=== PATIENT | male | born 1950 | race Caucasian/White ===

== ENCOUNTER 2024-04-06 09:21 | Emergency (ER) | payer MEDICARE, OTHER, SELFPAY ==
[2024-04-06] VITALS (27 sets, daily range): BP systolic 116–140; BP diastolic 70–96; PULSE 65–80; TEMP 36.8; O2SAT 93–99
--- NOTE | 2024-04-06 09:43 | CT_ITS ---
The [address] [address] Patient Name: LURDES SULLIVAN MRN: [id number] date: 1950 Sex: M Assigned Patient Location: ED.MAIN Current Patient Location: Accession/Order Number: [id number] Exam Date: 04/06/2024 11:39 Report Date: 04/06/2024 12:25 At the request of: CHRISTIANO METCALF Procedure: CT cervical spine wo con EXAM: CT head/brain wo con, CT cervical spine wo con HISTORY: Dizziness, fall, head lac COMPARISON: None. TECHNIQUE: Axial noncontrast CT imaging of the head and cervical spine was performed with coronal and sagittal reformats. FINDINGS: CT head Calvarium/skull base: Trace left frontal scalp contusion. No evidence of acute fracture or destructive lesion. Mastoids and middle ears demonstrate no substantial mucosal disease. Paranasal sinuses: No air fluid levels. Brain: No acute intracranial hemorrhage. No acute large vascular territory infarct. Age indeterminate subtle subcentimeter hypodensity involving the left frontal vu radiata white matter. No mass lesion or mass effect. No hydrocephalus. CT cervical spine Alignment: No substantial subluxation. Vertebrae: Vertebral body heights are maintained. No fracture. Diffuse osteopenia. Craniocervical junction: No focal abnormality. Degenerative changes: Moderate degenerative change of the cervical spine with multilevel disc height loss, osteophytic spurring, posterior disc osteophyte complexes and multilevel moderate and/or advanced uncovertebral and facet arthropathy. There is at least moderate canal stenosis at C5-C6 and multilevel moderate foraminal stenosis. Advanced bilateral foraminal stenosis is also noted at C5-C6 secondary to advanced uncovertebral arthropathy at this level. Visualized portion of the thoracic spine: No high grade canal stenosis. Additional Comments: Left apical 10 mm pulmonary nodule superimposed on left greater than right apical scarring.. CT/CT cervical spine wo con IMPRESSION: 1. No acute large vascular territory infarct or acute intracranial hemorrhage. 2. Subcentimeter hypodensity involving the left frontal vu radiata white matter which is age-indeterminate given lack available comparison. If there is clinical concern for acute ischemia recommend MR brain for further evaluation. 3. Trace left frontal scalp contusion. 4. No acute fracture or traumatic malalignment of the cervical spine. 5. Moderate degenerative change of the cervical spine. 6. 10 mm left apical pulmonary nodule. If not previously evaluated elsewhere consider dedicated CT chest for further characterization. Electronically authenticated by: GENNY PINA Date: 04/06/2024 12:25
--- NOTE | 2024-04-06 09:43 | CT_ITS ---
The [address] [address] Patient Name: LURDES SULLIVAN MRN: [id number] date: 1950 Sex: M Assigned Patient Location: ED.MAIN Current Patient Location: Accession/Order Number: [id number] Exam Date: 04/06/2024 11:39 Report Date: 04/06/2024 12:25 At the request of: CHRISTIANO METCALF Procedure: CT head/brain wo con EXAM: CT head/brain wo con, CT cervical spine wo con HISTORY: Dizziness, fall, head lac COMPARISON: None. TECHNIQUE: Axial noncontrast CT imaging of the head and cervical spine was performed with coronal and sagittal reformats. FINDINGS: CT head Calvarium/skull base: Trace left frontal scalp contusion. No evidence of acute fracture or destructive lesion. Mastoids and middle ears demonstrate no substantial mucosal disease. Paranasal sinuses: No air fluid levels. Brain: No acute intracranial hemorrhage. No acute large vascular territory infarct. Age indeterminate subtle subcentimeter hypodensity involving the left frontal vu radiata white matter. No mass lesion or mass effect. No hydrocephalus. CT cervical spine Alignment: No substantial subluxation. Vertebrae: Vertebral body heights are maintained. No fracture. Diffuse osteopenia. Craniocervical junction: No focal abnormality. Degenerative changes: Moderate degenerative change of the cervical spine with multilevel disc height loss, osteophytic spurring, posterior disc osteophyte complexes and multilevel moderate and/or advanced uncovertebral and facet arthropathy. There is at least moderate canal stenosis at C5-C6 and multilevel moderate foraminal stenosis. Advanced bilateral foraminal stenosis is also noted at C5-C6 secondary to advanced uncovertebral arthropathy at this level. Visualized portion of the thoracic spine: No high grade canal stenosis. Additional Comments: Left apical 10 mm pulmonary nodule superimposed on left greater than right apical scarring.. CT/CT head/brain wo con IMPRESSION: 1. No acute large vascular territory infarct or acute intracranial hemorrhage. 2. Subcentimeter hypodensity involving the left frontal vu radiata white matter which is age-indeterminate given lack available comparison. If there is clinical concern for acute ischemia recommend MR brain for further evaluation. 3. Trace left frontal scalp contusion. 4. No acute fracture or traumatic malalignment of the cervical spine. 5. Moderate degenerative change of the cervical spine. 6. 10 mm left apical pulmonary nodule. If not previously evaluated elsewhere consider dedicated CT chest for further characterization. Electronically authenticated by: GENNY PINA Date: 04/06/2024 12:25
--- NOTE | 2024-04-06 09:43 | ECG_ITS ---
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
--- NOTE | 2024-04-06 09:43 | XR_ITS ---
The [address] [address] Patient Name: LURDES SULLIVAN MRN: [id number] date: 1950 Sex: M Assigned Patient Location: ER Current Patient Location: ER Accession/Order Number: [id number] Exam Date: 04/06/2024 10:20 Report Date: 04/06/2024 11:28 At the request of: CHRISTIANO METCALF Procedure: XR chest 1V EXAM: XR chest 1V HISTORY: syncope COMPARISON: None. TECHNIQUE: Chest X-ray AP, 1 view FINDINGS: Support devices: Median sternotomy wires are in place. Lungs/pleura: No consolidation, effusion, or pneumothorax. Heart and mediastinum: Normal contours. Bones: No acute abnormality identified. XR/XR chest 1V Impression: No radiographic evidence of acute cardiopulmonary process. Electronically authenticated by: GLORIA KHAN Date: 04/06/2024 11:28
--- NOTE | 2024-04-06 09:43 | CT_ITS ---
[address] [address] Patient Name: LURDES SULLIVAN MRN: [id number] date: 1950 Sex: M Assigned Patient Location: ED.MAIN Current Patient Location: Accession/Order Number: [id number] Exam Date: 04/06/2024 11:39 Report Date: 04/06/2024 13:15 At the request of: CHRISTIANO METCALF Procedure: CT abdomen pelvis w con EXAM: CT abdomen pelvis w con HISTORY: weight loss abd pain COMPARISON: None. TECHNIQUE: Axial CT imaging was performed through the abdomen and pelvis with intravenous contrast. Multiplanar reformats were performed. Dose reduction techniques were achieved by using automated exposure control and/or adjustment of mA and/or kV according to patient size and/or use of iterative reconstruction technique. FINDINGS: Lung bases: Lung bases are clear. No pleural effusion. GI upper: Unremarkable. Liver: Normal size and contour. Gallbladder: No significant abnormality. No cholelithiasis. Biliary system: No intra or extrahepatic biliary ductal dilatation. Spleen: Normal size. Pancreas: Unremarkable. Adrenal glands: Normal adrenal glands. Kidneys/ureters: Normal contours. No hydronephrosis. There is a 0.2 cm right renal stone. Vessels: No aneurysm. Lymph Nodes: No lymphadenopathy. Small bowel: No wall thickening or dilatation. Colon: No wall thickening or dilatation. Moderate volume stool burden. Appendix: No findings of appendicitis. Peritoneal cavity: No free fluid or pneumoperitoneum. Lower : Prostatomegaly. The urinary bladder is unremarkable. Bones: No acute bony abnormality. Degenerative changes of lumbar spine. Soft tissues: No acute finding. Additional findings: None. CT/CT abdomen pelvis w con IMPRESSION: 0.2 cm nonobstructing right renal stone. Constipation. Electronically authenticated by: GLORIA KHAN Date: 04/06/2024 13:15
--- NOTE | 2024-04-06 09:53 | ED_ITS ---
HPI HPI - General Adult General Chief complaint: Head Injury Stated complaint: fall Time Seen by Provider: 04/06/24 09:24 Source: patient Mode of arrival: walk-in History of Present Illness HPI narrative: Patient presents to ED after a fall last night. He states he got up out of bed and seemed like he was very dizzy and then next thing he knows he woke up on the ground. He suffered a 3 cm laceration to the left side of the forehead. He denies any neck pain or any other injury. He lives at home with his brother who helped him back up. He came in today for further evaluation. When talking to him further he does report a 25 pound weight loss recently. He did lose his about a year and a half ago and has been dealing with depression however he said the weight loss was more recent than that. No suicidal ideation or self- harm. He is alert and oriented at this time. He does report some nausea daily with vague abdominal discomfort. He also reports that he has been dealing with pretty severe headaches almost every day for about the past year. He said the headaches are in the back of the head and radiate up in the scalp to the top of the head. No neurological deficits. Related Data Home Medications ?Medication ?Instructions ?Recorded ?Confirmed duloxetine 30 mg capsule,delayed 30 mg PO DAILY 04/06/24 04/06/24 release (Cymbalta) omeprazole 40 mg capsule,delayed 40 mg PO DAILY 04/06/24 04/06/24 release rosuvastatin 5 mg sprinkle capsule 5 mg PO DAILY 04/06/24 04/06/24 (Ezallor Sprinkle) Allergies Allergy/AdvReac Type Severity Reaction Status Date / Time Penicillins Allergy Severe Verified 04/06/24 09:29 Opioid HPI Opioid Management Most Recent Opioid Data: Last ED Pain Assessment 04/06/24 10:13 Review of Systems ROS Status of ROS 10 or more systems reviewed and unremark able except as noted in history and below Exam Narrative Exam Narrative: Time Seen: [] Vital Signs: [Per nurse's notes.] General: [Alert] Skin: [Warm, dry, no rash.] Head: [3 cm laceration vertically to the left side of the forehead Neck: [Supple, trachea midline.] Eye: [Pupils are equal, round and reactive to light, extraocular movements are intact, normal conjunctiva.] Ears, nose, mouth and throat: oral mucosa moist. Cardiovascular: [Regular rate and rhythm, no murmur.] Respiratory: [Lungs are clear to auscultation, respirations are non-labored, breath sounds are equal.] Chest wall: [No tenderness, no deformity.] Gastrointestinal: [Soft, nontender, non distended, normal bowel sounds.] MSK: 5 out of 5 muscle strength x 4 extremities no calf pain or edema Lymphatics: [No lymphadenopathy.] Psychiatric: [Cooperative, appropriate mood & affect.] Neurological: [Alert and oriented to person, place, time, and situation, no focal neurological deficit observed.] Constitutional Vital Signs, click to edit/add: Last Vital Signs Temp 98.3 F 04/06/24 09:26 Pulse 69 04/06/24 13:30 Resp 16 04/06/24 13:30 BP 126/74 04/06/24 13:30 Pulse Ox 98 04/06/24 13:30 O2 Del Method Room Air 04/06/24 09:26 Course Vital Signs Vital signs: Vital Signs Temperature 98.3 F 04/06/24 09:26 Pulse Rate 73 04/06/24 09:26 Respiratory Rate 18 04/06/24 09:26 Blood Pressure 140/96 H 04/06/24 09:26 Pulse Oximetry 98 04/06/24 09:26 Oxygen Delivery Method Room Air 04/06/24 09:26 Temperature 98.3 F 04/06/24 09:26 Pulse Rate 69 04/06/24 13:30 Respiratory Rate 16 04/06/24 13:30 Blood Pressure 126/74 04/06/24 13:30 Pulse Oximetry 98 04/06/24 13:30 Oxygen Delivery Method Room Air 04/06/24 09:26 Medical Decision Making MDM Narrative Medical decision making narrative: Patient's laceration was repaired. CT brain is negative. CT cervical spine is negative for acute. Chest x-ray shows a nodule that will need followed outpatient. CT abdomen pelvis shows constipation but no other acute findings. At this time I am unable to explain his weight loss it could be the possible depression from losing his but also he will need followed up with on the pulmonary nodule. He does not have a primary doctor yet since he just moved up here. He is working to get in with Dr. Hang adenomas. I have printed his labs and image results so that whoever he ends up with can review that. Patient instructed to return to ED if worsening symptoms or concerns. He will need stitches out in about 7 days so please return here or go to the family doctor if he gets 1 by then. Patient and family are comfortable care plan for home Differential Diagnosis Differential Diagnosis: Intracranial hemorrhage, cervical spine injury, cancer, laceration, fall Medical Records Medical records reviewed: Yes I reviewed the patient's medical records Lab Data Lab results reviewed: Yes I reviewed the patient's lab results Labs: Lab Results 04/06/24 04/06/24 Range/Units 09:40 12:09 WBC 4.9 (4.0-11.0) 10^3/uL RBC 4.50 L (4.70-6.10) 10^6/uL Hgb 14.5 (14.0-18.0) g/dL Hct 41.9 L (42.0-54.0) % MCV 93.1 (80.0-94.0) fL MCH 32.2 (25.9-34.0) pg MCHC 34.6 (29.9-35.2) g/dL RDW 11.9 (11.0-15.0) % Plt Count 167 (150-450) 10^3/uL MPV 9.8 (9.5-13.5) fL Neut % (Auto) 68.2 (43.0-75.0) % Lymph % (Auto) 23.1 (20.5-60.0) % [place] % (Auto) 6.9 (1.7-12.0) % Eos % (Auto) 1.2 (0.9-7.0) % Baso % (Auto) 0.6 (0.2-2.0) % Neut # (Auto) 3.4 (1.4-6.5) 10^3/uL Lymph # (Auto) 1.1 L (1.2-3.8) 10^3/uL [place] # (Auto) 0.3 (0.3-0.8) 10^3/uL Eos # (Auto) 0.1 (0.0-0.7) 10^3/uL Baso # (Auto) 0.0 (0.0-0.1) 10^3/uL Abs Immat Gran (auto) 0.00 (0.00-0.03) 10^3/uL Imm/Tot Granulo (auto) 0.0 (0.0-0.5) % Sodium 142 (136-145) mmol/L Potassium 3.8 (3.5-5.1) mmol/L Chloride 104 (98-107) mmol/L Carbon Dioxide 28.5 (21.0-32.0) mmol/L Anion Gap 13.3 BUN 21.0 H (7.0-18.0) mg/dL Creatinine 0.94 (0.70-1.30) mg/dL Est GFR ( Amer) >60 (>=60) Est GFR (Non-Af Amer) >60 (>=60) BUN/Creatinine Ratio 22.3 Glucose 115 H (74-106) mg/dL Calcium 9.2 (8.5-10.1) mg/dL Total Bilirubin 1.7 H (0.2-1.0) mg/dL AST 17 (15-37) U/L ALT 18 (16-63) U/L Alkaline Phosphatase 71 (46-116) U/L Troponin I High Sens 5.3 (4.0-76.1) pg/mL Total Protein 6.9 (6.4-8.2) g/dL Albumin 3.6 (3.4-5.0) g/dL Globulin 3.3 g/dL Albumin/Globulin Ratio 1.1 Urine Color Lt. yellow (YELLOW) Urine Clarity Clear (CLEAR) Urine pH 6.5 (5.0-9.0) Ur Specific [place] 1.010 (1.005-1.025) Urine Protein Negative (NEG/TRACE) mg/dL Urine Glucose (UA) Negative (NEGATIVE) mg/dL Urine Ketones Negative (NEGATIVE) mg/dL Urine Occult Blood Negative (NEGATIVE) Urine Nitrite Negative (NEGATIVE) Urine Bilirubin Negative (NEGATIVE) Urine Urobilinogen 0.2 (0.2-1.0) EU/dL Ur Leukocyte Esterase Negative (NEGATIVE) Imaging Data Chest x-ray: Radiologist's impression: ITS Impressions Abdomen/Pelvis CT 04/06/24 09:43 IMPRESSION: 0.2 cm nonobstructing right renal stone. Constipation. Electronically authenticated by: GLORIA KHAN Date: 04/06/2024 13:[address] 04/06/24 09:43 IMPRESSION: 1. No acute large vascular territory infarct or acute intracranial hemorrhage. 2. Subcentimeter hypodensity involving the left frontal vu radiata white matter which is age-indeterminate given lack available comparison. If there is clinical concern for acute ischemia recommend MR brain for further evaluation. 3. Trace left frontal scalp contusion. 4. No acute fracture or traumatic malalignment of the cervical spine. 5. Moderate degenerative change of the cervical spine. 6. 10 mm left apical pulmonary nodule. If not previously evaluated elsewhere consider dedicated CT chest for further characterization. Electronically authenticated by: GENNY PINA Date: 04/06/2024 12:25 Chest X-Ray 04/06/24 09:43 Impression: No radiographic evidence of acute cardiopulmonary process. Electronically authenticated by: GLORIA KHAN Date: 04/06/2024 11:[address] 04/06/24 09:43 IMPRESSION: 1. No acute large vascular territory infarct or acute intracranial hemorrhage. 2. Subcentimeter hypodensity involving the left frontal vu radiata white matter which is age-indeterminate given lack available comparison. If there is clinical concern for acute ischemia recommend MR brain for further evaluation. 3. Trace left frontal scalp contusion. 4. No acute fracture or traumatic malalignment of the cervical spine. 5. Moderate degenerative change of the cervical spine. 6. 10 mm left apical pulmonary nodule. If not previously evaluated elsewhere consider dedicated CT chest for further characterization. Electronically authenticated by: GENNY PINA Date: 04/06/2024 12:25 ECG Data Attestation: I personally reviewed and interpreted this ECG as follows: Interpretation: EKG INTERPRETATION Time: []932 Rate: []72 Rhythm: _ []Normal sinus rhythm ST segments: _ [] T waves: _ [] Ectopy: _ [] P wave/PA interval: _ [] QRS interval: _ [] QT interval: _ [] Comparison: _ [] Comparison EKG date: [] Performed by: [self]Occasional PVC no acute ST elevation or depression Discharge Plan Discharge Stand Alone Forms: Portal Instructions Chief Complaint: Head Injury Clinical Impression: Closed head injury, Fall, Laceration Patient Disposition: Home, Self-Care Time of Disposition Decision: 13:41 Condition: Good Mode of Transportation: Private Vehicle Prescriptions / Home Meds: No Action Ezallor Sprinkle 5 mg capsule, sprinkle 5 mg PO DAILY duloxetine [Cymbalta] 30 mg capsule,delayed release(DR/EC) 30 mg PO DAILY omeprazole 40 mg capsule,delayed release(DR/EC) 40 mg PO DAILY Print Language: Emirati Instructions: Head Injury (ED), Fall Prevention (ED) Referrals: Physician,Non-Staff, MD [Primary Care Provider] - 1 week Procedures ED Laceration Laceration Laceration 1: Additional comments: Time: [] Patient/procedure site confirmed correct. Time out taken. Consent from: _ []Patient Consent form: _ [] Location: []Forehead, left side Shape: _ []Linear but jagged vertical Depth: _ [] Details: _ [] Vascular exam: _ []Normal Sensory exam: _ []Normal Motor exam: _ []Normal Anesthesia amount (mls): []8 mL 1% lidocaine no epi Anesthesia type: _ [] Anesthesia location: _ []Local Preparation: sterile field _ [] Irrigation type: _ [] Irrigation amount (mls): [] Irrigation: _ [] Debridement: _ [] Closure type: _ []Simple interrupted Complexity: _ [] Closure technique: _ [] Suture type: _ []6-0 ethilon Suture total: [] 7 Top layer: [] Middle layer: [] Deep layer: [] Complications: [None] Patient tolerated: _ []well Post procedure exam: [Circulation, motor, sensory intact and bleeding controlled] Performed by: [self] Total time: []15 nub
[2024-04-06 10:17] LABS: Basophils Percent Auto 0.6 % (0.2-2.0); Eosinophils Absolute Auto 0.1 10^3/uL (0.0-0.7); Eosinophils Percent Auto 1.2 % (0.9-7.0); Hematocrit 41.9 % (42.0-54.0); Hemoglobin 14.5 g/dL (14.0-18.0); Lymphocytes Absolute Auto 1.1 10^3/uL (1.2-3.8); Lymphocytes Percent Auto 23.1 % (20.5-60.0); Mean Corpuscular HGB Conc 34.6 g/dL (29.9-35.2); Mean Corpuscular Hemoglobin 32.2 pg (25.9-34.0); Mean Corpuscular Volume 93.1 fL (80.0-94.0); Mean Platelet Volume 9.8 fL (9.5-13.5); Monocytes Absolute Auto 0.3 10^3/uL (0.3-0.8); Monocytes Percent Auto 6.9 % (1.7-12.0); Neutrophils Absolute Auto 3.4 10^3/uL (1.4-6.5); Neutrophils Percent Auto 68.2 % (43.0-75.0); Platelet Count 167 10^3/uL (150-450); Red Cell Distribution Width 11.9 % (11.0-15.0); White Blood Count 4.9 10^3/uL (4.0-11.0)
[2024-04-06] MEDS: 0.9 % SODIUM CHLORIDE 1,000 ML 1000 ML IV (10:35)
[2024-04-06 10:43] LABS: Alanine Aminotransferase 18 U/L (16-63); Albumin Globulin Ratio 1.1; Albumin Level 3.6 g/dL (3.4-5.0); Alkaline Phosphatase 71 U/L (46-116); Anion Gap 13.3; Aspartate Amino Transferase 17 U/L (15-37); BUN Creatinine Ratio 22.3; Bilirubin Total 1.7 mg/dL (0.2-1.0); Calcium 9.2 mg/dL (8.5-10.1); Carbon Dioxide 28.5 mmol/L (21.0-32.0); Chloride 104 mmol/L (98-107); Estimated GFR (African America >60 (>=60); Estimated GFR (Non-African Ame >60 (>=60); Globulin 3.3 g/dL; Glucose 115 mg/dL (74-106); Potassium 3.8 mmol/L (3.5-5.1); Sodium 142 mmol/L (136-145); Total Protein 6.9 g/dL (6.4-8.2); Troponin I High Sensitivity 5.3 pg/mL (4.0-76.1)
[2024-04-06 12:20] LABS: Bilirubin Urine NEGATIVE (NEGATIVE); Blood Urine NEGATIVE (NEGATIVE); Clarity Urine CLEAR (CLEAR); Color Urine LT. YELLOW (YELLOW); Glucose Urine UA NEGATIVE (NEGATIVE); Ketones Urine NEGATIVE (NEGATIVE); Leukocyte Esterase Urine NEGATIVE (NEGATIVE); Nitrite Urine NEGATIVE (NEGATIVE); Protein Urine NEGATIVE (NEG/TRACE); Urobilinogen Urine 0.2 EU/dL (0.2-1.0); pH Urine 6.5 (5.0-9.0)
[2024-04-06 12:24] LABS: Urine Microscopic Indicated NO
== END 2024-04-06 13:48 | disposition home or self-care (01) ==
PROVIDERS: Emergency Provider Emergency Medicine; Family Provider Internal Medicine
DX: S01.81XA Laceration without foreign body of other part of head, initial encounter (principal); S09.8XXA Other specified injuries of head, initial encounter; W19.XXXA Unspecified fall, initial encounter; R91.1 Solitary pulmonary nodule
CPT/HCPCS: 12013; 36415; 70450; 71045; 72125; 74177; 80053; 81003; 84484; 85025; 93005; 99285; Q9967

== ENCOUNTER 2024-04-16 11:02 | Emergency (ER) | payer MEDICARE, OTHER, SELFPAY ==
[2024-04-16 11:09] VITALS: BP 107/74; PULSE 81; TEMP 36.7; O2SAT 96; BMI 22.7
--- NOTE | 2024-04-16 11:15 | ED.RECABL1 ---
HPI - Recheck/Abnormal Lab/Rx General Chief Complaint: Recheck/Abnormal Lab/Rx Stated Complaint: SUTURE REMOVAL Time Seen by Provider: 04/16/24 11:13 Source: patient Mode of arrival: walk-in Limitations: no limitations History of Present Illness HPI narrative: Patient is here for suture removal. He was seen at the institution after a fall. He had CT imaging of C-spine head and neck and everything was normal. Laboratory testing was unremarkable. He has not had any complications or symptoms since the fall. Related Data Home Medications ?Medication ?Instructions ?Recorded ?Confirmed duloxetine 30 mg capsule,delayed 30 mg PO DAILY 04/06/24 04/06/24 release (Cymbalta) omeprazole 40 mg capsule,delayed 40 mg PO DAILY 04/06/24 04/06/24 release rosuvastatin 5 mg sprinkle capsule 5 mg PO DAILY 04/06/24 04/06/24 (Ezallor Sprinkle) Allergies Allergy/AdvReac Type Severity Reaction Status Date / Time Penicillins Allergy Severe Verified 04/06/24 09:29 Exam Narrative Exam Narrative: Problem focused examination shows this patient is signed to be normal he is in no apparent distress good cognition and mental status. Suture line in the left upper forehead frontal area is completely healing and beautifully intact. There is no evidence cellulitis complications or dehiscence. Constitutional Vital Signs, click to edit/add: Last Vital Signs Temp 98.1 F 04/16/24 11:09 Pulse 81 04/16/24 11:09 Resp 16 04/16/24 11:09 BP 107/74 04/16/24 11:09 Pulse Ox 96 04/16/24 11:09 O2 Del Method Room Air 04/16/24 11:09 Course Vital Signs Vital signs: Vital Signs Temperature 98.1 F 04/16/24 11:09 Pulse Rate 81 04/16/24 11:09 Respiratory Rate 16 04/16/24 11:09 Blood Pressure 107/74 04/16/24 11:09 Pulse Oximetry 96 04/16/24 11:09 Oxygen Delivery Method Room Air 04/16/24 11:09 Temperature 98.1 F 04/16/24 11:09 Pulse Rate 81 04/16/24 11:09 Respiratory Rate 16 04/16/24 11:09 Blood Pressure 107/74 04/16/24 11:09 Pulse Oximetry 96 04/16/24 11:09 Oxygen Delivery Method Room Air 04/16/24 11:09 MDM - Recheck/Abnormal Lab/Rx MDM Narrative Medical decision making narrative: Patient is here after a fall for suture removal wound is done very well and cognitively he has done well. Discharge Plan Discharge Stand Alone Forms: Portal Instructions Chief Complaint: Recheck/Abnormal Lab/Rx Clinical Impression: Encounter for removal of sutures Patient Disposition: Home, Self-Care Time of Disposition Decision: 11:16 Prescriptions / Home Meds: No Action Ezallor Sprinkle 5 mg capsule, sprinkle 5 mg PO DAILY duloxetine [Cymbalta] 30 mg capsule,delayed release(DR/EC) 30 mg PO DAILY omeprazole 40 mg capsule,delayed release(DR/EC) 40 mg PO DAILY Print Language: Ecuadorean Additional Instructions: Resume normal care and activity Referrals: Physician,Non-Staff, MD [Primary Care Provider] - 1 week
== END 2024-04-16 11:25 | disposition home or self-care (01) ==
PROVIDERS: Emergency Provider Emergency Medicine Emergency Medical Services; Family Provider Internal Medicine
DX: S01.81XD Laceration without foreign body of other part of head, subsequent encounter (principal); W19.XXXD Unspecified fall, subsequent encounter
CPT/HCPCS: 99281